=== PATIENT | female | born 1995 | race Caucasian/White ===

== ENCOUNTER 2016-10-04 23:13 | Emergency (ER) | payer OTHER | END 2016-10-05 00:12 | disposition home or self-care (01) | LOC: ER 23:13 | DX: J01.10 Acute frontal sinusitis, unspecified (principal); J01.00 Acute maxillary sinusitis, unspecified; R51 Headache; R05 Cough; F17.210 Nicotine dependence, cigarettes, uncomplicated | CPT/HCPCS: 81025; 96372; 99283-25 ==